=== PATIENT | female | born 1990 | race Caucasian/White ===

== ENCOUNTER 2016-10-06 18:08 | Emergency (ER) | payer BC, OTHER ==
[~2016-10-06] VITALS: Ht 170.2 cm; Wt 84.0 kg
[~2016-10-06 18:08] MED LIST: ACET325T33 PO; ALBU8.5H3
[2016-10-06 18:14] VITALS: Ht 170.2 cm; Wt 84.0 kg
--- NOTE | 2016-10-06 19:36 | ERD ---
ER Documentation Chief Complaint Date/Time DATE: 10/06/16 TIME: 19:21 Chief Complaint vaginal bleeding with blood in urine for past day, 1 pad changed in 24 hour HPI 26 y/o female presents to ED for vaginal spotting on and off for the past 3 days. She also complained of painful urination for about 3 days. Reports that she was treated for urine infection by her OB last week with metronidazole( finish the whole course). Also reports vaginal discharge (clear and non-odorous) . She is sexually active with one partner only (her fianc). Her fiancs has no symptoms. Also reports pelvic cramping that is on and off for 3 days. She is 5 weeks . LMP: 08/25/16. Denies headache, loss of consciousness, dizziness, blurry vision, changes in vision, photophobia, facial pain, ear pain, throat pain, difficulty swallowing, neck pain, shoulder pain, chest pain, cough, hemoptysis, back pain, loss of appetite, nausea, vomiting, hematochezia, diarrhea, constipation, bladder and bowel incontinences, extremity weakness, extremity tenderness, numbness or tingling sensation, difficulty walking, recent travel, recent exposure to illness, fever, chills. Allergy: NKA PMH: Denies. Family medical history: Denies. with 2 miscarriage. LMP:08/25/2016 Medications: Surgery: Denies. 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 Quit smoking cigarettes a year ago. Denies use of alcohol, use of illegal drugs. ROS All systems reviewed and are negative except as per history of present illness. Medications Home Meds Active Scripts Acetaminophen* (Tylenol*) 325 Mg Tablet, 2 TAB PO Q8 Y for PAIN AND OR ELEVATED TEMP, #20 TAB Prov:PATEL PERSON PA-C 02/05/16 Acetaminophen* (Tylenol*) 325 Mg Tablet, 2 TAB PO Q8 Y for PAIN AND OR ELEVATED TEMP, #20 TAB Prov:LUCINA DIAL PA-C 02/03/16 Reported Medications Albuterol Sulfate* (Proair HFA*) 8.5 Gm Hfa.aer.ad 01/31/13 [None] No Conflict Check 07/08/10 Allergies Allergies: Coded Allergies: No Known Allergy (Verified , 01/31/13) PMhx/Soc History of Surgery: Yes (DNC x 2; ) Anesthesia Reaction: No Hx Neurological Disorder: No Hx Respiratory Disorders: Yes (ASTHMA) Hx Cardiac Disorders: No Hx Psychiatric Problems: No Hx Miscellaneous Medical Probl: Yes (hx of 1 miscarriage; 2 abortions) Hx Alcohol Use: No Hx Substance Use: No Hx Tobacco Use: No Physical Exam Vitals Vital Signs Date Time Temp Pulse Resp B/P Pulse Ox O2 Delivery O2 Flow Rate FiO2 10/07/16 00:36 84 18 145/90 98 Room Air 10/06/16 18:14 98.3 94 18 150/94 97 Physical Exam CONSTITUTIONAL: Well-appearing; well-nourished; in no apparent distress. HEAD: Normocephalic; atraumatic. EYES: Conjunctiva clear, sclera non-icteric, EOM intact. PERRL Ears: Hearing intact. EACs clear, TMs non-bulging, non-inflamed, translucent & mobile, ossicles normal appearance, No obstructions, no erythema, no discharges Nose: No obstructions. No polyps. No external lesions. Mucosa non-inflamed. No external lesions, septum and turbinates normal. No rhinorrhea. No discharges. Frontal sinus is non-tender to palpation. Maxillary sinus is non-tender to palpation. MOUTH: Moist mucous membranes, no lesion, no obstructions, no vesicles, no thrush, patent airway Throat: Uvula in midline. Right tonsil is +1 with no erythema, no exudate. Left tonsil is +1 with no erythema, no exudate. Tolerating secretions well. Good gag reflex. Patent airway. Neck: Supple, without lesions, bruits, or adenopathy. No mass. Thyroid non- enlarged and non-tender to palpation. CHEST: Symmetrical chest. Respirations even and not labored. No retractions noted. CARDIOVASCULAR: Normal S1, S2. RRR. No murmurs, gallops. RESPIRATORY: Normal chest excursion with respiration; breath sounds clear and equal bilaterally; no wheezes, rhonchi, or rales. Breathing even and unlabored. Speaking in clear, full, and complete sentences w/ ease. ABDOMEN: Normal bowel sounds normal. Soft, round, non-distended, non-guarding, no tenderness, no rebound, no organomegaly, no masses, no pulsating abdominal mass. No hernia. No peritoneal signs. : No CVA tenderness. BACK: Symmetrical shoulder. Spine is midline without deformity, tenderness. No evidence of trauma or deformity. PELVIS: Stable pelvis. No evidence of trauma or deformity. MUSCULOSKELETAL: Normal gait and station. No misalignment, asymmetry, crepitation, defects, tenderness, masses, effusions, decreased range of motion, instability, atrophy or abnormal strength or tone in the head, neck, spine, ribs , pelvis or extremities. No calf tenderness. NEUROVASCULAR: Distal pulses are present. Pedal pulse are present, equal, and normal. Capillary refills are < 2 seconds. NEUROLOGIC: Alert and oriented x4. Speaks full and clear sentences. Cranial Nerves II-XII normal. Sensation to pain, touch, and proprioception normal. Grossly unremarkable. No neurologic deficits. Romberg test is negative. PSYCHOLOGICAL: The patients mood and manner are appropriate. No hallucinations , delusions. Not SI. Not HI. Has the capacity to decide for self SKIN: Normal for age and ethnicity; warm; dry; good turgor; no apparent lesions or exudates. No rashes, hives, discoloration. Intact. Result Diagram: 10/06/16194410/06/161944 Results 24 hrs Laboratory Tests Test 10/06/16 19:45 Alanine Aminotransferase (ALT/SGPT) 114IU/L Albumin 3.9g/dl Albumin/Globulin Ratio 1.30 Alkaline Phosphatase 73IU/L Anion Gap 20 Aspartate Amino Transf (AST/SGOT) 71IU/L Basophils # 0.010^3/ul Basophils % 0.2% Beta HCG, Quantitative 621.9mIU/ml Blood Urea Nitrogen 15mg/dl Calcium Level 9.7mg/dl Carbon Dioxide Level 23mmol/L Chloride Level 102mmol/L Creatinine 0.76mg/dl Direct Bilirubin 0.00mg/dl Eosinophils # 0.210^3/ul Eosinophils % 2.1% Globulin 3.00g/dl Glucose Level 106mg/dl Hematocrit 40.2% Hemoglobin 13.4g/dl Indirect Bilirubin 0.0mg/dl Lymphocytes # 2.610^3/ul Lymphocytes % 30.7% Mean Corpuscular Hemoglobin 30.7pg Mean Corpuscular Hemoglobin Concent 33.3g/dl Mean Corpuscular Volume 92.0fl Mean Platelet Volume 9.2fl Monocytes # 0.510^3/ul Monocytes % 6.1% Neutrophils # 5.110^3/ul Neutrophils % 60.8% Nucleated Red Blood Cells # 0.010^3/ul Nucleated Red Blood Cells % 0.0/100WBC Platelet Count 04096^3/UL Potassium Level 3.7mmol/L Red Blood Count 4.3710^6/ul Red Cell Distribution Width 12.5% Sodium Level 141mmol/L Total Bilirubin 0.0mg/dl Total Protein 6.9g/dl Urine Bacteria FEW Urine Bilirubin NEGATIVE Urine Clarity CLEAR Urine Color LT. YELLOW Urine Glucose NEGATIVE% Urine Hemoglobin 3+ Urine Ketones NEGATIVE Urine Leukocyte Esterase NEGATIVE Urine Microscopic RBC 2-5/HPF Urine Microscopic WBC 0-2/HPF Urine Nitrite NEGATIVE Urine Specific [place] 1.010 Urine Squamous Epithelial Cells FEW Urine Total Protein NEGATIVE Urine Urobilinogen 0.2 E.U./dL Urine pH 6.0 White Blood Count 8.410^3/ul Current Medications Medications (Trade) Dose Ordered Sig/Macho Route PRN Reason Start Time Stop Time Status Last Admin Dose Admin Acetaminophen (Tylenol Tab) 650 mg ONCE STAT PO 10/06/16 19:37 10/06/16 19:39 DC 10/06/16 19:43 Methotrexate (Methotrexate) 50 mg ONCE ONCE IM 10/06/16 22:00 10/06/16 22:01 Cancel Methotrexate (Methotrexate) 50 mg Q15M IM 10/06/16 23:00 10/06/16 23:16 DC Procedures/MDM Examination: Please see physical examination. Disease process, medical treatment was explained to the patient. She verbalized understanding and agreed with the diagnostic tests, medical treatment, and follow-up care. Radiology: Pelvic ultrasound. Findings: The uterus is anteverted and measures 9.5 x 6.6 x 5.2 cm. The endometrial echo complex is normal and measures 9 mm. The uterus is empty. There is no intrauterine . There is no evidence for free fluid. The right ovary has normal echotexture and measures 2.5 x 2.1 x 2.0 cm. The left ovary has normal echotexture and measures 3.6 x 2.2 x 2.1 cm. There is an echogenic 2.2 x 1.5 x 1.3 cm left adnexal mass that could potentially represent an ectopic . FIELD SUPERINTENDENT follow-up as needed. Impression: Empty uterus. No findings of intrauterine . Possible, left ectopic . FIELD SUPERINTENDENT follow-up is recommended. Abdominal ultrasound. Impression: Diffuse fatty infiltration of the liver. Blood works: Reviewed. Beta hCG quant: 621.9 mlU/ml POC urine : Positive. Urinalysis: Reviewed. Case and medical management was discussed with supervising emergency room physician, Dr. Neli Echavarria at around 21:40 who agreed with my present diagnostic test and she suggests for me to call OB. Called OB and spoke with Dr. Vivar at around 21:50. Dr. Vivar stated to order CMP blood work. She also suggested to order methotrexate. She also stated that she will come down to examined the patient and do a pelvic exam. Treatment: Methotrexate IM 1. Held due to elevated liver enzymes. Re-evaluation: Denies pain. Denies lower abdominal pain/cramping. Denies lower back pain/cramping. Denies pelvic pain/cramping. No active bleeding. Consultation: [employer] DEVELOPER, Dr. Vivar Pelvic exam: Done by Dr. Berenice Vivar (OB). Dr. Berenice Vivar stated that there was no additional tenderness on palpation and it was unremarkable. She also stated that patient agreed with methotrexate IM 1. However CMP revealed elevated liver enzymes. Spoke to Dr. Berenice Vivar at around 23: 08. She stated to hold the IM methotrexate due to elevated LFTs and suggests to order an abdominal ultrasound. Differential diagnosis: Ectopic versus miscarriage versus vaginal bleeding versus pelvic pain Medical decision makin26 y/o female presents to ED for vaginal spotting on and off for the past 3 days. She also complained of painful urination for about 3 days. Reports that she was treated for urine infection by her OB last week with metronidazole(finish the whole course). Also reports vaginal discharge ( clear and non-odorous). She is sexually active with one partner only (her fianc ). Her fiancs has no symptoms. Also reports pelvic cramping that is on and off for 3 days. She is 5 weeks . Patient's complaint, patient's history about her complaint, my physical findings, agnostic test results are consistent with final diagnosis of questionable ectopic . Dr. Berenice Vivar also stated that she instructed the patient to come back in 4 days for a re-evaluation and also come back 7 days from now for a re-evaluation. She also added that she instructed the patient that after 7 days patient should be evaluated weekly. She also stated that patient was instructed to come back in 24-48 hours if she experiences severe bleeding and lower abdominal cramping pain /pelvic pain and cramping, signs and symptoms of infection. Dr. Vivar also stated the patient verbalized understanding. At 23:15 Dr. Neli Echavarria spoke to Dr. Berenice Vivar. Dr. Berenice Vivar suggestion was to do right upper abdominal ultrasound stat then discharged the patient and have her come back tomorrow for a repeat LFTs and beta hCG. Patient agreed with plan of doing abdominal ultrasound. Abdominal ultrasound result was diffuse fatty infiltration of the liver. Denies abdominal pain/epigastric pain/back pain. Was instructed to come back tomorrow for beta hCG quantitative re-check and LFTs re-check and possible administration of methotrexate. She verbalized understanding and agreed that she will come back tomorrow. Medications prescribed are the following: Tylenol. Patient and family member are made aware of the side effects and adverse reactions of the medications prescribed. Instructed on when to seek emergent and medical attention in case allergic/anaphylactic reactions or severe side effects and or adverse reactions to medications. Patient and family member verbalized understanding. Patient instructed Instructed to follow-up with his PCP in 24-48 hours. Instructed to come back tomorrow for recheck beta hCG quantitative, and recheck of LFTs and also possible administration of methotrexate. Patient agreed with follow-up care. Instructed to Call 911 for chest pain, shortness of breath. Advised to come back here in ED as soon as possible for severity of symptoms which includes but not limited to: any new symptoms; shortness of breath/difficulty of breathing; cardiovascular changes; severe gastrointestinal symptoms; signs and symptoms of bleeding and or infection; signs of compartment syndrome/neurovascular changes; neurological changes/deficits. Patient and family member verbalized understanding. Upon discharge, patient is alert and oriented x 4, speaks full and clear sentences, denies pain, has no neurological deficits, has no neurovascular deficits, difficulty of breathing. Breathing even and unlabored. Lung sounds are clear to auscultation. Not in distress. There is no active bleeding. Patient denies pelvic pain/cramping. Patient denies lower back pain/cramping. No active bleeding. No nausea and vomiting. No chest pain. No shoulder pain. Appears comfortable. Ambulatory with steady gait. Appears satisfied with care provided here in ED. Departure Diagnosis: Primary Impression: Vaginal bleeding in patient at less than 20 weeks gestation Condition: Stable Additional Instructions: Instructed to follow-up with his PCP in 24-48 hours. Instructed to come back tomorrow for recheck beta hCG quantitative, and recheck of LFTs and also possible administration of methotrexate. Patient agreed with follow-up care. Instructed to Call 911 for chest pain, shortness of breath. Advised to come back here in ED as soon as possible for severity of symptoms which includes but not limited to: any new symptoms; shortness of breath/difficulty of breathing; cardiovascular changes; severe gastrointestinal symptoms; signs and symptoms of bleeding and or infection; signs of compartment syndrome/neurovascular changes; neurological changes/deficits. Patient and family member verbalized understanding. WINIFRED HARDY Oct 06, 2016 19:36
[2016-10-06] MEDS ORDERED: ACETAMINOPHEN 325 MG TAB PO STA (19:37)
[2016-10-06 19:59] LABS: ADD SCAN DIFF NO; ADD UMIC YES; URINE BILIRUBIN (Dip) NEGATIVE (NEGATIVE); URINE BLOOD (Dip) 3+ (NEGATIVE); URINE COLOR LT. YELLOW (YELLOW); URINE GLUCOSE (Dip) NEGATIVE (NEGATIVE); URINE KETONES (Dip) NEGATIVE (NEGATIVE); URINE LEUKOCYTE ESTERASE (Dip) NEGATIVE (NEGATIVE); URINE NITRITE (Dip) NEGATIVE (NEGATIVE); URINE TOTAL PROTEIN (Dip) NEGATIVE (NEGATIVE); URINE UROBILINOGEN (Dip) 0.2 E.U./dL (0.1-1.0)
[2016-10-06 20:12] LABS: BASOPHILS % 0.2 % (0.0-2.0); EOSINOPHILS # 0.2 10^3/ul (0.0-0.5); EOSINOPHILS % 2.1 % (0.0-7.0); HEMATOCRIT 40.2 % (37.0-47.0); HEMOGLOBIN 13.4 g/dl (12.0-16.0); LYMPHOCYTES # 2.6 10^3/ul (0.8-2.9); LYMPHOCYTES % 30.7 % (15.0-51.0); MEAN CORPUSCULAR HEMOGLOBIN 30.7 pg (29.0-33.0); MEAN CORPUSCULAR HGB CONC 33.3 g/dl (32.0-37.0); MEAN PLATELET VOLUME 9.2 fl (7.4-10.4); MONOCYTE # 0.5 10^3/ul (0.3-0.9); MONOCYTES % 6.1 % (0.0-11.0); NEUTROPHIL # 5.1 10^3/ul (1.6-7.5); NEUTROPHILS % 60.8 % (39.0-77.0); PLATELET COUNT 339 10^3/UL (140-415); RED BLOOD COUNT 4.37 10^6/ul (4.20-5.40); RED CELL DISTRIBUTION WIDTH 12.5 % (11.5-14.5); WHITE BLOOD COUNT 8.4 10^3/ul (4.8-10.8)
[2016-10-06 20:23] LABS: SQUAMOUS EPITHELIAL CELL,UR FEW
[2016-10-06 20:24] LABS: BACTERIA,URINE FEW
--- NOTE | 2016-10-06 21:09 | RADRPT ---
PROCEDURE: US Pelvis. CLINICAL INDICATION: Pelvic pain, female TECHNIQUE: Multiple sonographic images of the pelvis were obtained utilizing a transabdominal and endovaginal technique. The images were reviewed on a PACS workstation. COMPARISON: May 13, 2016, February 05, 2016, February 03, 2016 FINDINGS: The uterus is anteverted and measures 9.5 x 6.6 x 5.2 cm. The endometrial echo complex is normal and measures 9 mm. The uterus is empty. There is no intrauterine . There is no evidence for free fluid. The right ovary has a normal echotexture and measures 2.5 x 2.1 x 2.0 cm. The left ovary has a normal echotexture and measures 3.6 x 2.2 x 2.1 cm. There is an echogenic 2.2 x 1.5 x 1.3 cm left adnexal mass that could potentially represent an ectopic . COLD STORAGE WORKER followu p is needed. IMPRESSION: Empty uterus. No findings of intrauterine . Possible, left ectopic . COLD STORAGE WORKER follow up is needed. RPTAT: EE .Mihaela Cali MD, Date Time Electronically viewed and signed by .Mihaela Cali MD, on 10/06/2016 21:09 .F/
[2016-10-06] MEDS ORDERED: METHOTREXATE 50 MG INJ IM ONE (22:00)
[2016-10-06 22:13] LABS: ALBUMIN 3.9 g/dl (3.3-4.9)
[2016-10-06 22:14] LABS: POTASSIUM 3.7 mmol/L (3.5-5.1)
[2016-10-06 22:16] LABS: ALBUMIN/GLOBULIN RATIO 1.3; CALCIUM 9.7 mg/dl (8.4-10.2); CREATININE 0.76 mg/dl (0.44-1.00); TOTAL PROTEIN 6.9 g/dl (6.1-8.1)
[2016-10-06] MEDS ORDERED: METHOTREXATE 50 MG INJ IM SCH (23:00)
--- NOTE | 2016-10-06 23:53 | RADRPT ---
PROCEDURE: ULTRASOUND LIMITED ABDOMEN CLINICAL INDICATION: 26-year-old female with abdominal pain and abnormal liver function tests. TECHNIQUE: Multiple sonographic of the right upper quadrant of the abdomen were obtained. The imag es were reviewed on a PACS workstation. COMPARISON: None. FINDINGS: The pancreas is not well visualized secondary to overlying bowel gas. The liver displays diffuse increase echogenicity consistent with fatty infiltration. The liver measu res 17.7 cm in length. No evidence of intrahepatic biliary ductal dilatation is seen. The portal an d hepatic veins are unremarkable. The gallbladder demonstrates no wall thickening, sludge, nor stones. No pericholecystic fluid is see n. The common bile duct measures 2.5 mm and is not dilated. The right kidney displays normal echogenicity. The right kidney measures 10.7 cm in maximal length. No caliectasis or hydronephrosis is seen. No free fluid is seen. IMPRESSION: Diffuse fatty infiltration of the liver. .Inocencio Velasquez MD, Date Time Electronically viewed and signed by .Inocencio Velasquez MD, on 10/06/2016 23:53 .M/
--- NOTE | 2016-10-06 23:59 | PN ---
Date/Time of Note Date/Time of Note DATE: 10/06/16 TIME: 23:49 Assessment/Plan VTE Prophylaxis VTE Prophylaxis Intervention: other Assessment/Plan Chief Complaint/Hosp Course Abdomen- soft, n/t SVE- no adnexal tenderness noted; no masses palpated; no bleeding noted Problems: Assessment/Plan Was planning to give patient methotrexate, since there is suspicion of ectopic and hcg is low, no pain, no cardiac activity However, when chemistry was performed, LFT's were found to be elevated patient, therefore, advised to return to ED in 1-2 days for f/u beta and sono advised to return immediately if fever, increased pain, or bleeding patient counselled that this may be a very early vs. ectopic vs recent SAB advised ED physician to examine source of elevated LFT's since patient has no medical problems, and this will likely cause patient to need surgical management if ecotpic is present Subjective 24 Hr Interval Summary Free Text/Dictation 26 yo [id number]@ 6 wks by LMP, Sep 27, presents today w spotting rh+ sono shows no IUP, 2cm hypoechoic left adnexal mass, cannot r/o ectopic bhcg 600 Exam/Review of Systems Vital Signs Vitals Vital Signs Date Time Temp Pulse Resp B/P Pulse Ox O2 Delivery O2 Flow Rate FiO2 10/06/16 18:14 98.3 94 18 150/94 97 Results Result Diagram: 10/06/16194410/06/161944 Results 24 hrs Laboratory Tests Test 10/06/16 19:45 Alanine Aminotransferase (ALT/SGPT) 114 H Albumin 3.9 Albumin/Globulin Ratio 1.30 Alkaline Phosphatase 73 Anion Gap 20 H Aspartate Amino Transf (AST/SGOT) 71 H Basophils # 0.0 Basophils % 0.2 Beta HCG, Quantitative 621.9 Blood Urea Nitrogen 15 Calcium Level 9.7 Carbon Dioxide Level 23 Chloride Level 102 Creatinine 0.76 Direct Bilirubin 0.00 Eosinophils # 0.2 Eosinophils % 2.1 Globulin 3.00 Glucose Level 106 Hematocrit 40.2 Hemoglobin 13.4 Indirect Bilirubin 0.0 Lymphocytes # 2.6 Lymphocytes % 30.7 Mean Corpuscular Hemoglobin 30.7 Mean Corpuscular Hemoglobin Concent 33.3 Mean Corpuscular Volume 92.0 Mean Platelet Volume 9.2 # Monocytes # 0.5 Monocytes % 6.1 Neutrophils # 5.1 Neutrophils % 60.8 Nucleated Red Blood Cells # 0.0 Nucleated Red Blood Cells % 0.0 Platelet Count 339 Potassium Level 3.7 Red Blood Count 4.37 Red Cell Distribution Width 12.5 Sodium Level 141 Total Bilirubin 0.0 L Total Protein 6.9 Urine Bacteria FEW Urine Bilirubin NEGATIVE Urine Clarity CLEAR Urine Color LT. YELLOW Urine Glucose NEGATIVE Urine Hemoglobin 3+ H Urine Ketones NEGATIVE Urine Leukocyte Esterase NEGATIVE Urine Microscopic RBC 2-5 Urine Microscopic WBC 0-2 Urine Nitrite NEGATIVE Urine Specific [place] 1.010 Urine Squamous Epithelial Cells FEW Urine Total Protein NEGATIVE Urine Urobilinogen 0.2 E.U./dL Urine pH 6.0 White Blood Count 8.4 # KIERRA BURROWS MD Oct 06, 2016 23:58
[2016-10-07 00:36] VITALS: BP 145/90; PULSE 84; RESP 18
== END 2016-10-07 00:37 | disposition home or self-care (01) ==
LOC: FTE 18:08
DX: O20.9 Hemorrhage in early pregnancy, unspecified (principal); J45.909 Unspecified asthma, uncomplicated; O99.511 Diseases of the respiratory system complicating pregnancy, first trimester; R10.2 Pelvic and perineal pain; Z87.891 Personal history of nicotine dependence; Z3A.01 Less than 8 weeks gestation of pregnancy
CPT/HCPCS: 36415; 76705; 76801; 76817; 80053; 81001; 84702; 85025; 86900; 86901; 87086; J9260; Z7502; Z7610; 81003

== ENCOUNTER 2016-10-09 08:12 | Emergency (ER) | payer OTHER ==
[~2016-10-09] VITALS: Wt 81.0 kg
[2016-10-09 09:07] LABS: ADD SCAN DIFF NO
[2016-10-09 09:11] LABS: BASOPHILS % 0.4 % (0.0-2.0); EOSINOPHILS # 0.2 10^3/ul (0.0-0.5); EOSINOPHILS % 1.9 % (0.0-7.0); HEMATOCRIT 40.2 % (37.0-47.0); HEMOGLOBIN 13.8 g/dl (12.0-16.0); LYMPHOCYTES # 1.9 10^3/ul (0.8-2.9); LYMPHOCYTES % 23.9 % (15.0-51.0); MEAN CORPUSCULAR HEMOGLOBIN 31.3 pg (29.0-33.0); MEAN CORPUSCULAR HGB CONC 34.3 g/dl (32.0-37.0); MEAN CORPUSCULAR VOLUME 91.2 fl (82.0-101.0); MEAN PLATELET VOLUME 8.9 fl (7.4-10.4); MONOCYTE # 0.4 10^3/ul (0.3-0.9); MONOCYTES % 4.8 % (0.0-11.0); NEUTROPHIL # 5.3 10^3/ul (1.6-7.5); NEUTROPHILS % 68.6 % (39.0-77.0); PLATELET COUNT 343 10^3/UL (140-415); RED BLOOD COUNT 4.41 10^6/ul (4.20-5.40); RED CELL DISTRIBUTION WIDTH 12.3 % (11.5-14.5); WHITE BLOOD COUNT 7.8 10^3/ul (4.8-10.8)
[2016-10-09 09:20] LABS: ALBUMIN 3.9 g/dl (3.3-4.9)
[2016-10-09 09:21] LABS: POTASSIUM 3.7 mmol/L (3.5-5.1)
[2016-10-09 09:23] LABS: BILIRUBIN,INDIRECT 0.2 mg/dl (0-1.1); BILIRUBIN,TOTAL 0.2 mg/dl (0.2-1.3); CREATININE 0.64 mg/dl (0.44-1.00)
[2016-10-09 09:24] LABS: ALBUMIN/GLOBULIN RATIO 1.05; CALCIUM 9.2 mg/dl (8.4-10.2); TOTAL PROTEIN 7.6 g/dl (6.1-8.1)
--- NOTE | 2016-10-09 09:45 | ERD ---
ER Documentation Chief Complaint Date/Time DATE: 10/09/16 TIME: 09:39 Chief Complaint here for methotrexate shot due to extopic epregnancy. no pain or vag bleed HPI This is a 26-year-old female who presents to the emergency department today for repeat laboratory work and follow-up after being seen here in the emergency department a couple of days ago for a possible ectopic . Patient denies any pain at this time. She states that she does continue to have some vaginal bleeding that is intermittent. Denies any fevers or chills. ROS All systems reviewed and are negative except as per history of present illness. Medications Home Meds Active Scripts Acetaminophen* (Tylenol*) 325 Mg Tablet, 2 TAB PO Q8 Y for PAIN AND OR ELEVATED TEMP, #20 TAB Prov:PATEL PERSON PA-C 02/05/16 Acetaminophen* (Tylenol*) 325 Mg Tablet, 2 TAB PO Q8 Y for PAIN AND OR ELEVATED TEMP, #20 TAB Prov:LUCINA DIAL PA-C 02/03/16 Reported Medications Albuterol Sulfate* (Proair HFA*) 8.5 Gm Hfa.aer.ad 01/31/13 [None] No Conflict Check 07/08/10 Allergies Allergies: Coded Allergies: No Known Allergy (Verified , 01/31/13) PMhx/Soc History of Surgery: Yes (DNC x 2; ) Anesthesia Reaction: No Hx Neurological Disorder: No Hx Respiratory Disorders: Yes (ASTHMA) Hx Cardiac Disorders: No Hx Psychiatric Problems: No Hx Miscellaneous Medical Probl: Yes (hx of 1 miscarriage; 2 abortions) Hx Alcohol Use: No Hx Substance Use: No Hx Tobacco Use: No Smoking Status: Never smoker Physical Exam Vitals Vital Signs Date Time Temp Pulse Resp B/P Pulse Ox O2 Delivery O2 Flow Rate FiO2 10/09/16 08:15 98.2 77 20 160/81 99 Physical Exam Const: Pleasant, no acute distress Head: Atraumatic Eyes: Normal Conjunctiva ENT: Normal External Ears, Nose and Mouth. Neck: Full range of motion..~ No meningismus. Resp: Clear to auscultation bilaterally Cardio: Regular rate and rhythm, no murmurs Abd: Soft, non tender, non distended. Normal bowel sounds. No right lower quadrant pain. No left lower quadrant pain. Skin: No petechiae or rashes Back: No midline or flank tenderness Ext: No cyanosis, or edema Neur: Awake and alert Psych: Normal Mood and Affect Result Diagram: 10/09/16 0900 10/09/16 0900 Results 24 hrs Laboratory Tests Test 10/09/16 09:00 Alanine Aminotransferase (ALT/SGPT) 103IU/L Albumin 3.9g/dl Albumin/Globulin Ratio 1.05 Alkaline Phosphatase 72IU/L Anion Gap 19 Aspartate Amino Transf (AST/SGOT) 72IU/L Basophils # 0.010^3/ul Basophils % 0.4% Beta HCG, Quantitative 487.4mIU/ml Blood Urea Nitrogen 11mg/dl Calcium Level 9.2mg/dl Carbon Dioxide Level 21mmol/L Chloride Level 103mmol/L Creatinine 0.64mg/dl Direct Bilirubin 0.00mg/dl Eosinophils # 0.210^3/ul Eosinophils % 1.9% Globulin 3.70g/dl Glucose Level 111mg/dl Hematocrit 40.2% Hemoglobin 13.8g/dl Indirect Bilirubin 0.2mg/dl Lymphocytes # 1.910^3/ul Lymphocytes % 23.9% Mean Corpuscular Hemoglobin 31.3pg Mean Corpuscular Hemoglobin Concent 34.3g/dl Mean Corpuscular Volume 91.2fl Mean Platelet Volume 8.9fl Monocytes # 0.410^3/ul Monocytes % 4.8% Neutrophils # 5.310^3/ul Neutrophils % 68.6% Nucleated Red Blood Cells # 0.010^3/ul Nucleated Red Blood Cells % 0.0/100WBC Platelet Count 19953^3/UL Potassium Level 3.7mmol/L Red Blood Count 4.4110^6/ul Red Cell Distribution Width 12.3% Sodium Level 139mmol/L Total Bilirubin 0.2mg/dl Total Protein 7.6g/dl White Blood Count 7.810^3/ul DIAGNOSTIC IMAGING REPORT Patient: DANIAL MAYS : 1990 Age: 26 Sex: F MR #: [id number] DOS: 10/09/16 0848 Ordering MD: LORY LUGO PA-C Location: [facility] Room/Bed: PROCEDURE: US OB. CLINICAL INDICATION: Vaginal bleeding. TECHNIQUE: Transabdominal and transvaginal imaging of the gravid uterus was performed. Images are reviewed on a high-resolution PACS workstation. COMPARISON: Pelvic ultrasound dated 10/06/2016. FINDINGS: No intrauterine is identified. There is mild diffuse heterogeneity of the uterus a more focal sub centimeter hypoechoic region within the anterior body adjacent to the endometrium. The uterus measures 10.1 x 5.8 x 6.7 cm. The right ovary measures 2.6 x 1.5 x 1.7 cm and the left ovary measures 3.6 x 2.1 x 1.7 cm. There is normal flow demonstrated within both ovaries. There is a 1.1 cm cyst with internal echoes, which may reflect a hemorrhagic cyst or endometrioma. There is a 2.1 x 1.5 x 1.5 cm heterogeneous lesion within the left ovary, slightly decreased in size when compared the prior examination. IMPRESSION: 1. Slight interval decrease in size of a heterogeneous lesion in the left ovary , which remain suspicious for an ectopic . Short interval follow-up pelvic ultrasound in serial beta HCG is recommended. 2. Right ovarian cyst with internal echoes, which may reflect a hemorrhagic cyst or endometrioma. Attention on follow-up is recommended. 3. Nonspecific sub-centimeter hypoechoic region within the anterior body of the uterus adjacent to the endometrium. Attention on follow-up is also recommended. These findings discussed with Lory Lugo in the ED at 1043 hours on 2016. RPTAT: GG .Vincent Polanco MD, MD Date Time Electronically viewed and signed by .Vincent Polanco MD, MD on 10/09/2016 11:28 .P/ CC: LORY LUGO PA-C/[facility] This is a 26-year-old female who presents to the emergency department today for follow-up lab work. Patient was seen here 3 days ago for vaginal bleeding and dysuria in . A complete OB workup was done and an ultrasound showed no IUP and was concerning for a possible left ectopic as there was a left adnexal mass. Patient was consulted with Dr. Vivar here in the emergency department who was going to give the patient methotrexate however patient had elevated liver enzymes at that time and an abdominal ultrasound was ordered that showed patient had fatty liver but no other abnormalities. Today patient states that she does continue to have intermittent vaginal bleeding however denies any abdominal pain at this time. She indicated that her symptoms of dysuria have resolved. Patient had a negative UA on her last visit. Here in the emergency department today I did recheck patient's laboratory work as well as repeat an ultrasound. Laboratory work shows no elevated white blood cell count. She is not anemic. Platelets are within normal limits. Electrolytes are within normal limits. Glucose is within normal limits. Liver function is mildly elevated and remains largely unchanged with only minimal improvement from previous laboratory work taken a few days ago Beta quant hCG 487.4 Rh status a positive Ultrasound shows a slight interval decrease in the size of a heterogeneous lesion in the left ovary which remains suspicious for an apical . Short interval follow-up pelvic ultrasound and serial beta quant was recommended. There is a right ovarian cyst with internal echoes which may reflect a hemorrhagic cyst or endometrioma. There is a nonspecific subcentimeter hypoechoic region within the anterior body of the uterus adjacent to the endometrium. I did receive a call from the radiologist about these findings, Dr. Vincent Polanco Patient's beta quant 3 days ago was 629.1. Today her beta quant is 487.4. I placed a call to the laborist electronic warfare technician and Dr. Phillips came to the emergency room to evaluate the patient. He feels that given the patient really has no abdominal pain or pelvic pain on physical exam he has no cervical motion tenderness that her chances for an ectopic are low at this time. He would like her to get a repeat beta quant and ultrasound in 4 days. He feels that the patient is stable for discharge and outpatient management. Patient is in agreement. Patient declined any pain medications here in the emergency department. At this time the patient is stable for discharge and outpatient management. Patient should follow up with their PCP in the next 1-2 days and get a repeat beta quant in 4 days.. They may return to the emergency department sooner for any persistent or worsening of symptoms. Patient understood and agreed with the plan. I discussed the patient with Dr. Bell and he is in agreement with the plan Departure Diagnosis: Primary Impression: Vaginal bleeding in patient at less than 20 weeks gestation Condition: LORY Anderson PA-C Oct 09, 2016 09:45
--- NOTE | 2016-10-09 11:29 | RADRPT ---
PROCEDURE: US OB. CLINICAL INDICATION: Vaginal bleeding. TECHNIQUE: Transabdominal and transvaginal imaging of the gravid uterus was performed. Images are reviewed on a high-resolution PACS workstation. COMPARISON: Pelvic ultrasound dated 10/06/2016. FINDINGS: No intrauterine is identified. There is mild diffuse heterogeneity of the uterus a more f ocal sub centimeter hypoechoic region within the anterior body adjacent to the endometrium. The uterus measures 10.1 x 5.8 x 6.7 cm. The right ovary measures 2.6 x 1.5 x 1.7 cm and the left ov fan measures 3.6 x 2.1 x 1.7 cm. There is normal flow demonstrated within both ovaries. There is a 1 .1 cm cyst with internal echoes, which may reflect a hemorrhagic cyst or endometrioma. There is a 2 .1 x 1.5 x 1.5 cm heterogeneous lesion within the left ovary, slightly decreased in size when compar ed the prior examination. IMPRESSION: 1. Slight interval decrease in size of a heterogeneous lesion in the left ovary, which remain suspic ious for an ectopic . Short interval follow-up pelvic ultrasound in serial beta HCG is rec ommended. 2. Right ovarian cyst with internal echoes, which may reflect a hemorrhagic cyst or endometrioma. Attention on follow-up is recommended. 3. Nonspecific sub-centimeter hypoechoic region within the anterior body of the uterus adjacent to the endometrium. Attention on follow-up is also recommended. These findings discussed with Lory Hitchcock in the ED at 1043 hours on 10/09/2016. RPTAT: GG .Vincent Polanco MD, MD Date Time Electronically viewed and signed by .Vincent Polanco MD, MD on 10/09/2016 11:28 .P/
[2016-10-09 11:57] VITALS: BP 113/80; PULSE 82; RESP 18; TEMP 98.5
--- NOTE | 2016-10-09 11:57 | CONS ---
Date/Time of Note Date/Time of Note DATE: 10/09/16 TIME: 11:50 Consultation Date/Type/Reason Admit Date/Time Initial Consult Date October 09, 2016 Emergency room consult This patient is a 26 years old 5 para 1 2 with 1 spontaneous 1 with a last menstrual period of August 25, 2016 She came to emergency room due to the fact that the 4 days earlier she was here and there was a suspicious of ectopic and the the beta-hCG level was around 752 however the level is only 487.4 m international unit per ml. she has a pinkish discharge other than that no other complaint. No complaint of abdominal pain. No vaginal bleeding . On examination: She is a well-developed well-nourished somewhat overweight lady . her vital signs are stable including blood pressure pulse rate and temperature on examination of abdomen there is no tenderness no rebound no CVA tenderness extremities are normal no edema. On pelvic examination there is a slight pinkish discharge the. The uterus is top normal size. No tenderness no cervical motion tenderness no large or tender mass could be felt on examination of this patient. Her lab reports were basically normal WBC 7.4 hemoglobin 13.8 hematocrit 40.2 .all liver function tests are normal transabdominal ultrasound was performed and compared with pelvic ultrasound on 10/06/16 no intrauterine was identified there is a mild diffuse heterogeneity of the uterus the measurement of the uterus was 10.1 x 5.8 x 6.7 the right ovary 2.6 x 1.5 x 1.7 left ovary was slightly larger 3.6 x 2.1 x 1.7 cm normal flow of the blood was present on both ovary with impression of slight interval decrease in the size of the heterogeneous lesion of the left ovary which remained suspicious of ectopic With these ultrasound finding and the pelvic examination the possibility of ectopic is small Most likely the case is a spontaneous loss. the situation were discussed with the patient in detail and.. And it was explained to her that in case of severe lower abdominal pain heavy vaginal bleeding she should come back to emergency room as soon as possible. Laboratory Tests Test 10/09/16 09:00 Alanine Aminotransferase (ALT/SGPT) 103IU/L Albumin 3.9g/dl Albumin/Globulin Ratio 1.05 Alkaline Phosphatase 72IU/L Anion Gap 19 Aspartate Amino Transf (AST/SGOT) 72IU/L Basophils # 0.010^3/ul Basophils % 0.4% Beta HCG, Quantitative 487.4mIU/ml Blood Urea Nitrogen 11mg/dl Calcium Level 9.2mg/dl Carbon Dioxide Level 21mmol/L Chloride Level 103mmol/L Creatinine 0.64mg/dl Direct Bilirubin 0.00mg/dl Eosinophils # 0.210^3/ul Eosinophils % 1.9% Globulin 3.70g/dl Glucose Level 111mg/dl Hematocrit 40.2% Hemoglobin 13.8g/dl Indirect Bilirubin 0.2mg/dl Lymphocytes # 1.910^3/ul Lymphocytes % 23.9% Mean Corpuscular Hemoglobin 31.3pg Mean Corpuscular Hemoglobin Concent 34.3g/dl Mean Corpuscular Volume 91.2fl Mean Platelet Volume 8.9fl Monocytes # 0.410^3/ul Monocytes % 4.8% Neutrophils # 5.310^3/ul Neutrophils % 68.6% Nucleated Red Blood Cells # 0.010^3/ul Nucleated Red Blood Cells % 0.0/100WBC Platelet Count 41412^3/UL Potassium Level 3.7mmol/L Red Blood Count 4.4110^6/ul Red Cell Distribution Width 12.3% Sodium Level 139mmol/L Total Bilirubin 0.2mg/dl Total Protein 7.6g/dl White Blood Count 7.810^3/ul 24 HR Interval Summary Free Text/Dictation End of dictation Exam/Review of Systems Vital Signs Vitals Vital Signs Date Time Temp Pulse Resp B/P Pulse Ox O2 Delivery O2 Flow Rate FiO2 10/09/16 08:15 98.2 77 20 160/81 99 Results Result Diagram: 10/09/16 0910/09/16 09 Results 24 hrs Laboratory Tests Test 10/09/16 09:00 Alanine Aminotransferase (ALT/SGPT) 103 H Albumin 3.9 Albumin/Globulin Ratio 1.05 Alkaline Phosphatase 72 Anion Gap 19 H Aspartate Amino Transf (AST/SGOT) 72 H Basophils # 0.0 Basophils % 0.4 Beta HCG, Quantitative 487.4 Blood Urea Nitrogen 11 Calcium Level 9.2 Carbon Dioxide Level 21 Chloride Level 103 Creatinine 0.64 Direct Bilirubin 0.00 Eosinophils # 0.2 Eosinophils % 1.9 Globulin 3.70 H Glucose Level 111 Hematocrit 40.2 Hemoglobin 13.8 Indirect Bilirubin 0.2 Lymphocytes # 1.9 Lymphocytes % 23.9 Mean Corpuscular Hemoglobin 31.3 Mean Corpuscular Hemoglobin Concent 34.3 Mean Corpuscular Volume 91.2 Mean Platelet Volume 8.9 Monocytes # 0.4 Monocytes % 4.8 Neutrophils # 5.3 Neutrophils % 68.6 Nucleated Red Blood Cells # 0.0 Nucleated Red Blood Cells % 0.0 Platelet Count 343 Potassium Level 3.7 Red Blood Count 4.41 Red Cell Distribution Width 12.3 Sodium Level 139 Total Bilirubin 0.2 Total Protein 7.6 White Blood Count 7.8 BOB PEARSON MD Oct 09, 2016 11:57
== END 2016-10-09 12:05 | disposition home or self-care (01) ==
LOC: FTE 08:12
DX: O20.9 Hemorrhage in early pregnancy, unspecified (principal); J45.909 Unspecified asthma, uncomplicated; O99.519 Diseases of the respiratory system complicating pregnancy, unspecified trimester; Z3A.00 Weeks of gestation of pregnancy not specified
CPT/HCPCS: 76801; 76817; 80053; 84702; 85025; Z7502

== ENCOUNTER 2016-11-15 07:57 | Emergency (ER) | payer OTHER ==
[~2016-11-15] VITALS: Wt 82.0 kg
[2016-11-15 08:30] LABS: URINE BLOOD (Dip) POC Negative (NEGATIVE)
[2016-11-15] MEDS ORDERED: NITR-58 PO (08:51)
[2016-11-15] MEDS ORDERED: PHEN-537 PO (08:52)
--- NOTE | 2016-11-15 08:54 | ERD ---
ER Documentation Chief Complaint Date/Time DATE: 11/15/16 TIME: 08:52 Chief Complaint LOWER ABD PAIN WITH DYSURIA, DENIES N/V SINCE YESTERDAY HPI Patient is a 26-year-old female who presents to the ED with suprapubic pain, dysuria, urgency and frequency 1 day. Denies fever or chills. Denies abdominal pain, nausea, vomiting, diarrhea or constipation. Last bowel movement was last night. Denies back pain. Denies headache or dizziness. Denies hematuria. Denies vaginal bleeding. No other complaints. ROS All systems reviewed and are negative except as per history of present illness. Medications Home Meds Active Scripts Phenazopyridine Hcl* (Pyridium*) 100 Mg Tab, 100 MG PO TID for 7 Days, TAB Prov:WILD FARLEY PA-C 11/15/16 Nitrofurantoin Monohyd Macrocr* (Macrobid*) 100 Mg Capsr, 100 MG PO BID for 7 Days, CAP Prov:WILD FARLEY PA-C 11/15/16 Acetaminophen* (Tylenol*) 325 Mg Tablet, 2 TAB PO Q8 Y for PAIN AND OR ELEVATED TEMP, #20 TAB Prov:PATEL PERSON PA-C 02/05/16 Acetaminophen* (Tylenol*) 325 Mg Tablet, 2 TAB PO Q8 Y for PAIN AND OR ELEVATED TEMP, #20 TAB Prov:LUCINA DIAL PA-C 02/03/16 Reported Medications Albuterol Sulfate* (Proair HFA*) 8.5 Gm Hfa.aer.ad 01/31/13 [None] No Conflict Check 07/08/10 Allergies Allergies: Coded Allergies: No Known Allergy (Verified , 01/31/13) PMhx/Soc History of Surgery: Yes (DNC x 2; ) Anesthesia Reaction: No Hx Neurological Disorder: No Hx Respiratory Disorders: Yes (ASTHMA) Hx Cardiac Disorders: No Hx Psychiatric Problems: No Hx Miscellaneous Medical Probl: Yes (hx of 1 miscarriage; 2 abortions) Hx Alcohol Use: No Hx Substance Use: No Hx Tobacco Use: No FmHx Family History: No coronary disease, No diabetes, No other Physical Exam Vitals Vital Signs Date Time Temp Pulse Resp B/P Pulse Ox O2 Delivery O2 Flow Rate FiO2 11/15/16 08:04 98.0 75 18 120/69 99 Physical Exam GENERAL: Well-developed, well-nourished female. Appears in no acute distress. HEAD: Normocephalic, atraumatic. EYES: Pupils are equally reactive bilaterally. EOMs grossly intact. No conjunctival erythema. ENT: Moist mucous membranes. No uvula deviation. No kissing tonsils. No exudates. NECK: Supple. No lymphadenopathy or thyromegaly. No meningismus. negative kernig. negative brudinski. LUNG: Clear to auscultation bilaterally. No rhonchi, wheezing, rales or coarse breath sounds. HEART: Regular rate and rhythm. No murmurs, rubs or gallops. ABDOMEN: No scars, ecchymosis or rashes noted. Soft, nontender, and nondistended. Positive bowel sounds in all four quadrants. No rebound tenderness , no guarding. (-) McBurneys point tenderness. No CVA tenderness. Mild suprapubic tenderness BACK: No midline tenderness. Extremities: Equal pulses bilaterally. No peripheral clubbing, cyanosis or edema. No unilateral leg swelling. NEUROLOGIC: Alert and oriented. Moving all four extremities. 5/5 strength in all extremities. Normal speech. Steady gait. SKIN: Normal color. Warm and dry. No rashes or lesions. Capillary refill < 2 seconds Results 24 hrs Laboratory Tests Test 11/15/16 08:30 Bedside Urine pH (LAB) 6.5 Bedside Urine Protein (LAB) 1+ Bedside Urine Glucose (UA) Negative Bedside Urine Ketones (LAB) Negative Bedside Urine Blood Negative Bedside Urine Nitrite (LAB) Negative Bedside Urine Leukocyte Esterase (L Trace Procedures/MDM ER COURSE: I kept the patient and/or family informed of laboratory and diagnostic imaging results throughout the emergency room course. LABORATORY STUDIES Urine dip shows trace leukocytes no hematuria for nitrites. test negative MEDICAL DECISION MAKING: This is a 26-year-old female who presents with dysuria, urgency, frequency 1 day. Vital signs were reviewed. Patient is afebrile. Patient is not hypoxic. Patient is not toxic or ill-appearing. Patient likely has cystitis. Low suspicion for ovarian torsion, PID, tuboovarian abscess, ectopic , bowel obstruction, pyelonephritis, appendicitis, cervicitis, septic , molar , HELLP syndrome, DISCHARGE: At this time, patient is stable for discharge and outpatient management with no new complaints during the ER course. Patient was sent home with Macrobid, Pyridium. Patient will be discharged home with instructions to recheck for new or worsening symptoms such as fever, nausea, weakness, LOC and to follow up with primary care in the next 1-2 days. Patient was advised to return to the ER for any new or worsening symptoms. Plan was discussed and patient and/or family understands and agrees. Home instructions were given. Departure Diagnosis: Primary Impression: Cystitis Condition: Stable Patient Instructions: Cystitis Additional Instructions: Call your primary care doctor TOMORROW for an appointment during the next 1-2 days.See the doctor sooner or return here if your condition worsens before your appointment time. WILD FARLEY PA-C Nov 15, 2016 08:54
== END 2016-11-15 09:23 | disposition home or self-care (01) ==
LOC: FTE 07:57
DX: N30.90 Cystitis, unspecified without hematuria (principal); R10.2 Pelvic and perineal pain; J45.909 Unspecified asthma, uncomplicated
CPT/HCPCS: 81003; 99283

== ENCOUNTER 2018-11-10 20:45 | Emergency (ER) | payer OTHER ==
[~2018-11-10] VITALS: Ht 167.6 cm; Wt 77.0 kg
[~2018-11-10 20:45] MED LIST changes: -ALBU8.5H3; +ALBU8.5H8; +NITR-58 PO; +PHEN-537 PO
[2018-11-10 20:53] VITALS: BP 141/82; PULSE 92; RESP 16; Ht 167.6 cm; Wt 77.0 kg
--- NOTE | 2018-11-11 00:08 | ERD ---
ER Documentation Chief Complaint Chief Complaint pt reports burning with urination and s/s similar to previous UTI HPI 28-year-old female with a history of recurrent UTIs presents with complaint of dysuria and urgency for the past 3 days. Denies any current treatments. Denies hematuria, fevers, chills, abdominal pain, flank pain, vomiting, back pain, diarrhea, vaginal discharge. Denies allergies. Denies medical problems. ROS All systems reviewed and are negative except as per history of present illness. Medications Home Meds Active Scripts Phenazopyridine Hcl* (Pyridium*) 100 Mg Tab, 100 MG PO TID for 7 Days, TAB Prov:WILD FARLEY PA-C 11/15/16 Nitrofurantoin Monohyd Macrocr* (Macrobid*) 100 Mg Capsr, 100 MG PO BID for 7 Days, CAP Prov:WILD FARLEY PA-C 11/15/16 Acetaminophen* (Tylenol*) 325 Mg Tablet, 2 TAB PO Q8 PRN for PAIN AND OR ELEVATED TEMP, #20 TAB Prov:PATEL PERSON PA-C 02/05/16 Acetaminophen* (Tylenol*) 325 Mg Tablet, 2 TAB PO Q8 PRN for PAIN AND OR ELEVATED TEMP, #20 TAB Prov:LUCINA DIAL PA-C 02/03/16 Reported Medications Albuterol Sulfate* (Proair HFA*) 8.5 Gm Hfa.aer.ad 01/31/13 [None] No Conflict Check 07/08/10 Allergies Allergies: Coded Allergies: No Known Allergy (Verified , 11/10/18) PMhx/Soc Medical and Surgical Hx: pt denies Medical Hx, pt denies Surgical Hx History of Surgery: Yes (DNC x 2; ) Anesthesia Reaction: No Hx Neurological Disorder: No Hx Respiratory Disorders: Yes (ASTHMA) Hx Cardiac Disorders: No Hx Psychiatric Problems: No Hx Miscellaneous Medical Probl: Yes (hx of 1 miscarriage; 2 abortions) Hx Alcohol Use: No Hx Substance Use: No Hx Tobacco Use: No FmHx Family History: No diabetes, No coronary disease, No other Physical Exam Vitals Vital Signs Date Temp Pulse Resp B/P (MAP) Pulse Ox O2 O2 Flow FiO2 Time Delivery Rate 11/10/18 98.7 92 16 141/82 99 20:53 (101) Physical Exam Const: No acute distress Head: Atraumatic Eyes: Normal Conjunctiva ENT: Normal External Ears, Nose and Mouth. Neck: Full range of motion. No meningismus. Resp: Clear to auscultation bilaterally Cardio: Regular rate and rhythm, no murmurs Abd: Soft, non tender, non distended. Normal bowel sounds Skin: No petechiae or rashes Back: No midline or flank tenderness Ext: No cyanosis, or edema Neur: Awake and alert Psych: Normal Mood and Affect Results 24 hrs Laboratory Tests Test 11/10/18 23:39 11/10/18 23:41 Bedside Urine pH (LAB) 6.5 Bedside Urine Protein (LAB) Negative Bedside Urine Glucose (UA) Negative Bedside Urine Ketones (LAB) Negative Bedside Urine Blood Trace-intact Bedside Urine Nitrite (LAB) Negative Bedside Urine Leukocyte Esterase (L 3+ POC Beta HCG, Qualitative NEGATIVE Procedures/MDM Urine dip was ordered. Patient's presentation is consistent with uncomplicated UTI. Patient given Rx for Keflex. I will suspicion for pyelonephritis, ovarian torsion, tubo-ovarian abscess, PID, or any other emergent condition. Patient discharged with strict ER precautions. Patient advised to follow up with PMD. All questions answered at discharge. Departure Diagnosis: Primary Impression: UTI (urinary tract infection) Urinary tract infection type: site unspecified Hematuria presence: without hematuria Qualified Codes: N39.0 - Urinary tract infection, site not specified Condition: Al ASIA RICO Nov 11, 2018 00:08
[2018-11-11] MEDS ORDERED: CEPH-443 PO (00:09)
== END 2018-11-11 00:40 | disposition home or self-care (01) ==
LOC: FTE 20:45
DX: N39.0 Urinary tract infection, site not specified (principal); J45.909 Unspecified asthma, uncomplicated
CPT/HCPCS: 81003; 81025; 99283